=== PATIENT | female | born 1990 | race Two or more races ===

== ENCOUNTER 2023-07-15 13:31 | Outpatient (AMB) | payer MEDICAID, SELFPAY ==
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
== END 2023-07-15 15:04 | disposition home or self-care (01) ==
PROVIDERS: PCP Nurse Practitioner Adult Health; Referring Provider Physical Medicine & Rehabilitation; Visit Provider Neurological Surgery
DX: M54.16 Radiculopathy, lumbar region (principal)
CPT/HCPCS: 99205

== ENCOUNTER → 2023-07-15 13:31 | Outpatient (BNVA) | payer MEDICAID, SELFPAY | PROVIDERS: PCP Nurse Practitioner Adult Health; Referring Provider Physical Medicine & Rehabilitation; Visit Provider Neurological Surgery ==

== ENCOUNTER 2023-08-15 12:57 | Outpatient (REF) | payer MEDICAID, SELFPAY ==
--- NOTE | ~2023-08-15 | CT_ITS ---
EXAMINATION: CT LUMBAR SPINE WITHOUT CONTRAST CLINICAL INFORMATION: Lumbar radiculopathy, evaluate for osteophytes COMPARISON: None available. TECHNIQUE: A multidetector CT acquisition of the lumbar spine is obtained without contrast. This CT examination was performed using dose optimization techniques as appropriate, variously including the following: *Automated exposure control *Adjustment of mA and/or kV according to patient size (this includes techniques or standardized protocols for targeted exams where dose is matched to indication/reason for exam; i.e. extremities or head) *Use of iterative reconstruction technique DLP: 599.0 mGy-cm FINDINGS: Straightening of the normal lumbar lordosis. No significant spondylolisthesis. Vertebral body heights are maintained. There is no suspicious osseous lesion. Degenerative endplate changes with anterior osteophyte formation at L4-L5. Please note that canal patency is not well assessed on this examination due to inherent limitations of CT without intrathecal contrast. Within these limitations, multilevel degenerative changes with level by level detail are as follows: L1-L2: No significant spinal canal or neural foraminal stenosis. L2-L3: No significant spinal canal or neural foraminal stenosis. L3-L4: Central/right central disc protrusion indents the ventral thecal sac with asymmetric narrowing of the right lateral recess. The spinal canal is otherwise patent. The neural foramen are not significantly narrowed. L4-L5: Disc bulge and osteophytic ridging indents the ventral thecal sac. Mild left greater than right neural foraminal narrowing. L5-S1: Trace disc bulge. The spinal canal and neural foramen are patent. The gallbladder is surgically absent. CT/CT lumbar spine wo IV con IMPRESSION: There is likely a central/right central disc protrusion at L3-L4 which indents the ventral thecal sac and narrows the right lateral recess. Correlation with MRI is suggested if clinically indicated. No high-grade spinal canal or neural foraminal stenosis.
[2023-08-15 13:46] LABS: MANUAL DIFF FLAG NO
[2023-08-15 14:04] LABS: Basophils Absolute Auto 0.1 X10*3/uL (0.0-0.2); Basophils Percent Auto 0.5 % (0-2); Eosinophils Absolute Auto 0.4 X10*3/uL (0.0-0.4); Eosinophils Percent Auto 3.6 % (0-4); Hematocrit 44.9 % (37.0-47.0); Hemoglobin 15.2 g/dl (12.0-16.0); Imm Gran Abs Auto 0.05 X10*3/uL (0.00-0.03); Imm Gran Pct Auto 0.5 % (0.0-0.4); Lymphocytes Absolute Auto 2.2 X10*3/uL (1.2-4.9); Lymphocytes Percent Auto 22.4 % (20-40); Mean Corpuscular HGB Conc 33.9 g/dl (31.0-35.0); Mean Corpuscular Hemoglobin 27.8 pg (27.0-33.0); Mean Corpuscular Volume 82.2 fL (80.0-98.0); Monocytes Absolute Auto 0.6 X10*3/uL (0.1-1.2); Monocytes Percent Auto 5.8 % (2-11); Neutrophils Absolute Auto 6.6 x10*3/uL (2.0-8.3); Neutrophils Percent Auto 67.2 % (45-73); Platelet Count 272 X10*3/uL (160-400); Red Blood Count 5.46 X10*6/uL (4.20-5.50); Red Cell Distribution Width 12.6 % (11.0-16.0); White Blood Count 9.8 X10*3/uL (4.8-10.8)
[2023-08-15 14:39] LABS: Anion Gap 11 (12-20); Blood Urea Nitrogen 7 mg/dL (9-16); Calcium 9.6 mg/dL (8.4-10.2); Carbon Dioxide 28 mmol/L (22-29); Chloride 103 mmol/L (96-108); Estimated Glomerular Filt Rate > 60; Glucose Random 89 mg/dL (60-115); Sodium 138 mmol/L (135-145)
== END 2023-08-15 12:58 | disposition home or self-care (01) ==
LOC: HO.CT 12:57
PROVIDERS: Visit Provider Physician Assistant
DX: M54.16 Radiculopathy, lumbar region (principal)
CPT/HCPCS: 36415; 72131; 80048; 85025